=== PATIENT | female | born 1990 | race Two or more races ===

== ENCOUNTER 2017-10-16 15:09 | Emergency (ER) | payer BC, OTHER, SELFPAY ==
[~2017-10-16] VITALS: Ht 157.5 cm; Wt 85.5 kg
[2017-10-16 15:12] VITALS: BP 121/81
[2017-10-16] MEDS ORDERED: FAMOTIDINE 20 MG TABLET PO ONE (15:30)
[2017-10-16] MEDS ORDERED: FAMOTIDINE 20 MG TABLET ONE (17:12)
== END 2017-10-16 17:23 | disposition home or self-care (01) ==
LOC: ED 16:45
DX: L23.9 Allergic contact dermatitis, unspecified cause (principal)
CPT/HCPCS: 99283; J7512; Q0177